=== PATIENT | male | born 1975 | race Caucasian/White ===

== ENCOUNTER → 2020-01-17 | Outpatient (CLI) | payer OTHER | END | disposition home or self-care (01) | LOC: LAB SHORT 10:44 → LAB 10:44 | DX: K51.90 Ulcerative colitis, unspecified, without complications (principal) | CPT/HCPCS: 83993 ==

== ENCOUNTER 2020-02-15 12:39 | Day surgery (SDC) | payer OTHER ==
[~2020-02-15] VITALS: Ht 182.9 cm; Wt 108.7 kg
[2020-02-15] MEDS ORDERED: OMEP20ER (12:56)
[2020-02-15] MEDS ORDERED: RENFLEXIS100 M1 (12:56)
[2020-02-15] MEDS ORDERED: AZAT50 (12:56)
--- NOTE | 2020-02-15 13:24 | NUR ---
02/15/20 1324 Eveline Fuller 2 IV ATTEMPTS FIRST ATTEMPT IN RIGHT WRIST NO FLASHBACK SECOND ATTEMPT IN LEFT HAND NO FLASHBACK THIRD ATTEMPT IN RIGHT HAND NO FLASHBACK FOURTH ATTEMPT IN RIGHT WRIST SUCCESSFUL ATTEMPTS BY RENATOT, DLB, RXS
== END 2020-02-15 14:10 | disposition home or self-care (01) ==
LOC: ORSCSDS 12:39
PROVIDERS: Internal Medicine Gastroenterology
PROC: 0DB58ZX Excision of Esophagus, Via Natural or Artificial Opening Endoscopic, Diagnostic (ICD-10-PCS; principal; 2020-02-15 13:45)
DX: K22.70 Barrett's esophagus without dysplasia (principal); D50.9 Iron deficiency anemia, unspecified; K21.9 Gastro-esophageal reflux disease without esophagitis; G47.33 Obstructive sleep apnea (adult) (pediatric); K44.9 Diaphragmatic hernia without obstruction or gangrene; K31.819 Angiodysplasia of stomach and duodenum without bleeding; Z79.899 Other long term (current) drug therapy
CPT/HCPCS: 88305; J2704; J7120

== ENCOUNTER → 2020-04-11 | Outpatient (CLI) | payer OTHER ==
[~2020-04-11] MED LIST: AZAT50; OMEP20ER; RENFLEXIS100 M1
== END | disposition home or self-care (01) ==
LOC: LAB SHORT 12:13 → PLD 12:13
DX: D22.5 Melanocytic nevi of trunk (principal)
CPT/HCPCS: 88305

== ENCOUNTER → 2020-05-17 | Outpatient (CLI) | payer OTHER | END | disposition home or self-care (01) | LOC: PLD 07:51 → LAB SHORT 07:51 | DX: D48.5 Neoplasm of uncertain behavior of skin (principal) | CPT/HCPCS: 88305 ==

== ENCOUNTER 2020-08-04 10:02 | Day surgery (SDC) | payer OTHER ==
[~2020-08-04] VITALS: Ht 182.9 cm; Wt 248.6 kg
== END 2020-08-04 12:11 | disposition home or self-care (01) ==
LOC: ORSCSDS 10:02
PROVIDERS: Internal Medicine Gastroenterology
PROC: 0DB58ZX Excision of Esophagus, Via Natural or Artificial Opening Endoscopic, Diagnostic (ICD-10-PCS; principal; 2020-08-04 11:30)
DX: K22.70 Barrett's esophagus without dysplasia (principal); K50.90 Crohn's disease, unspecified, without complications; K44.9 Diaphragmatic hernia without obstruction or gangrene; K31.819 Angiodysplasia of stomach and duodenum without bleeding; G47.33 Obstructive sleep apnea (adult) (pediatric); D50.9 Iron deficiency anemia, unspecified; E66.9 Obesity, unspecified; Z68.31 Body mass index [BMI] 31.0-31.9, adult; Z79.899 Other long term (current) drug therapy
CPT/HCPCS: 88305; J2250; J2704; J7120

== ENCOUNTER 2021-03-28 13:47 | Inpatient (IN) | payer OTHER ==
[~2021-03-28] VITALS: Ht 182.9 cm; Wt 111.1 kg
[2021-03-28 15:04] LABS: Alanine Aminotransfer (ALT/SGP 44 U/L (12-78); Albumin, Blood 4.4 g/dL (3.4-5.0); Alk Phos 89 U/L (50-136); Anion Gap 9 mmol/L (6-16); Aspartate Aminotrans (AST/SGOT 33 U/L (12-37); Bilirubin, Total 0.5 mg/dL (0.1-1.0); Blood Urea Nitrogen 12 mg/dL (8-24); Bun/Creatinine Ratio 11.4 (12.0-20.0); CO2, Blood 23 mmol/L (21-32); Calcium, Blood 9.5 mg/dL (8.5-10.1); Chloride, Blood 107 mmol/L (98-108); Creatinine, Blood 1.05 mg/dL (0.60-1.20); Globulin, Blood 4.2 g/dL (2.2-4.0); Glomerular Filtration Rate >60 (60-); Glucose, Blood 120 mg/dL (70-99); Potassium, Blood 4.3 mmol/L (3.5-5.5); Sodium, Blood 139 mmol/L (136-145); Total Protein, Blood 8.6 g/dL (6.4-8.2)
[2021-03-28 15:14] LABS: BASOPHILS ABSOLUTE AUTO 0.04 K/mm3 (0.00-0.23); BASOPHILS PERCENT AUTO 1 % (0-2); EOSINOPHILS ABSOLUTE AUTO 0.11 K/mm3 (0.00-0.68); EOSINOPHILS PERCENT AUTO 1 % (0-6); Hematocrit 44.2 % (37.0-53.0); Hemoglobin 14.1 g/dL (13.5-17.5); IMMATURE GRAN ABSOLUTE AUTO 0.01 K/mm3 (0.00-0.10); IMMATURE GRAN PERCENT AUTO 0 % (0-1); LYMPHOCYTES ABSOLUTE AUTO 1.67 K/mm3 (0.84-5.20); LYMPHOCYTES PERCENT AUTO 21 % (21-46); MONOCYTES ABSOLUTE AUTO 0.72 K/mm3 (0.16-1.47); MONOCYTES PERCENT AUTO 9 % (4-13); Mean Corpuscular HGB 27.5 pg (26.0-34.0); Mean Corpuscular HGB Conc 31.9 g/dL (31.5-36.5); Mean Corpuscular Volume 86 fL (80-100); Mean Platelet Volume 9.5 fL (9.1-12.4); NEUTROPHILS ABSOLUTE AUTO 5.32 K/mm3 (1.96-9.15); NEUTROPHILS PERCENT AUTO 68 % (41-73); Platelet Count 312 K/mm3 (150-400); RDW Coefficient Variation 14.8 % (11.7-14.2); RDW Standard Deviation 47.8 fL (35.1-46.3); Red Blood Cell Count 5.13 M/mm3 (4.30-5.90); White Blood Cell Count 7.87 K/mm3 (4.00-11.30)
[2021-03-28 17:13] LABS: Influenza A, PCR NEGATIVE (NEGATIVE); Influenza B, PCR NEGATIVE (NEGATIVE); Resp Syncytial Virus, PCR NEGATIVE (NEGATIVE); SARS-Cov-2 (COVID-19) PCR, MMC NEGATIVE (NEGATIVE)
--- NOTE | 2021-03-28 18:36 | NUR ---
1715 RECEIVED PT. FROM ER VIA STRETCHER ACCOMPANIED BY COMBAT CONTROL MANAGER, TRANSFERRED TO BED INDEPENDENTLY, AOX4, ORIENTATION TO ROOM DONE, CALL LIGHT WITHIN REACH, BED IN LOW POSITION, EDUCATION GIVEN RE: NPO DIET RELATED TO UPCOMING SURGERY,ADVISED TO CALL FOR ANY NEEDS, PT. VERBALIZED UNDERSTANDING.
--- NOTE | 2021-03-28 19:56 | NUR ---
DR. PHILIP NOTIFIED OF ORAL TEMP 102.1 AND HR TACHY IN 120'S. NEW ORDER FOR TYLENOL. WILL ADMINISTER AND RECHECK. PT A&O X4. DENIES CHILLS/BODYACHES. PAIN TOLERABLE AT THIS TIME.
--- NOTE | 2021-03-28 23:48 | NUR ---
DR. PHILIP GIVEN UPDATE ON PATIENT CONDITION. PT REMAINS FEBRILE AT 102.3, DESPITE ADMINISTRATION OF TYLENOL. TACHY IN LOW 100'S. IVF INFUSING. BLANKETS REMOVED. ALL OTHER VS WNL. WILL GIVEN TORADOL PER ORDERS.
--- NOTE | 2021-03-29 06:04 | NUR ---
SHIFT SUMMARY: PT A&O X4. FEBRILE THIS SHIFT WITH TMXAX 102.3. PT MEDICATED WITH TYLENOL AND TORADOL PER EMAR. MOST RECENT TEMP 98.4. PT ALSO TACHY IN BEGINNING OF SHIFT BUT HAS IMPROVED THROUGHOUT NIGHT. IVF AND IV ABX INFUSING PER EMAR. PT INDEPENDENT IN ROOM. PAIN BEING MANAGED WITH 50MCG OF FENTANYL PER EMAR. PT HAS BEEN NPO SINCE MIDNIGHT FOR OR TODAY.
--- NOTE | 2021-03-29 08:22 | NUR ---
temp rechecked after tylenol and is 103.3. dr zuleta notified
--- NOTE | 2021-03-29 08:51 | NUR ---
TO DAY SURGERY VIA BED
--- NOTE | 2021-03-29 08:58 | NUR ---
INTO SDS ADMISSION STARTED TO UNIT. RATES PAIN AT 4-5 WHEN NOT MOVING
--- NOTE | 2021-03-29 09:45 | NUR ---
03/29/21 0945 Rola Sosa NO PREOP ANTIBIOTICS PATIENT IS ON SCHEDULED ANTIBIOTICS.
--- NOTE | 2021-03-29 12:34 | NUR ---
1100 RETURNED TO ROOM POST OP. PT STOOD TO TRANSFER FROM [facility] TO BED. PT REPORTS PAIN IS MUCH LESS THAN IT WAS PRIOR TO SURGERY AND DENIES NEED FOR PAIN MED AT THIS TIME. ABD INCISIONS X3 WITH GAUZE DRESSINGS. JULITA DRAIN TO LLQ WITH BLOODY DRAINAGE
--- NOTE | 2021-03-29 17:08 | NUR ---
PT REPORTS PAIN IS ADEQUATELY CONTROLLED. CASIMIRO PO WITHOUT NAUSEA. PT AMBULATING IN ROOM AND VOIDING CLEAR YELLOW URINE. INCISIONS DRY AND INTACT. JULITA WITH SANGUINOUS DRAINAGE
[2021-03-30 04:41] LABS: BASOPHILS ABSOLUTE AUTO 0.02 K/mm3 (0.00-0.23); BASOPHILS PERCENT AUTO 0 % (0-2); EOSINOPHILS PERCENT AUTO 0 % (0-6); Hematocrit 34.5 % (37.0-53.0); Hemoglobin 11.5 g/dL (13.5-17.5); IMMATURE GRAN ABSOLUTE AUTO 0.07 K/mm3 (0.00-0.10); IMMATURE GRAN PERCENT AUTO 1 % (0-1); LYMPHOCYTES ABSOLUTE AUTO 0.57 K/mm3 (0.84-5.20); LYMPHOCYTES PERCENT AUTO 4 % (21-46); MONOCYTES ABSOLUTE AUTO 0.72 K/mm3 (0.16-1.47); MONOCYTES PERCENT AUTO 5 % (4-13); Mean Corpuscular HGB 28.5 pg (26.0-34.0); Mean Corpuscular HGB Conc 33.3 g/dL (31.5-36.5); Mean Corpuscular Volume 85 fL (80-100); Mean Platelet Volume 9.5 fL (9.1-12.4); NEUTROPHILS ABSOLUTE AUTO 12.79 K/mm3 (1.96-9.15); NEUTROPHILS PERCENT AUTO 90 % (41-73); Platelet Count 192 K/mm3 (150-400); RDW Coefficient Variation 14.6 % (11.7-14.2); RDW Standard Deviation 45.1 fL (35.1-46.3); Red Blood Cell Count 4.04 M/mm3 (4.30-5.90); White Blood Cell Count 14.17 K/mm3 (4.00-11.30)
--- NOTE | 2021-03-30 07:58 | NUR ---
SHIFT SUMMARY: PT DOING MUCH BETTER THIS SHIFT. POD#1 FOR A LAP APPY. JULITA DRAIN IN PLACE TO LEFT ABD. SCANT AMOUNT OF SS DRG IN BULB. DRAIN NOT NEEDING TO BE EMPTIED THIS SHIFT. LAP SITES C/D/I WITH GAUZE AND TEGADERM. ABD MIDLY DISTENDED. PT REPORTS PASSING A SMALL AMOUNT OF FLATUS. TOLERATING REG DIET. DENIES N/V. IVF AND IV ABX INFUSING PER EMAR. PAIN BEING MANAGED WITH OXY AND TYLENOL.
--- NOTE | 2021-03-30 17:32 | NUR ---
PT REPORTS PAIN IS WELL CONTROLLED WITH PO MEDS. ABD DISTENDED PT PT STATES IS MUCH LESS DISTENDED THAN IT WAS THIS MORNING. PT PASSING FLATUS AND HAD SMALL BM. CASIMIRO REG DIET WITHOUT NAUSEA. AMBULATING INDEPENDENTLY IN HALLWAYS. JULITA DRAIN WITH CLOUDY SEROSANGUINOUS DRAINAGE
--- NOTE | 2021-03-31 07:10 | NUR ---
SHIFT SUMMARY POD2 LAP KINJAL, A/O X4, VSS, TOLERATING PO, PAIN WELL MANAGED, INDEPENDENT IN ROOM, AMBULATES IN THE HALLS, DISTENTION IN ABD IMPROVING, PASSING FLATUS, SMALL BM YESTERDAY PER REPORT. NO ACUTE EVENTS THIS SHIFT. CALL LIGHT IN REACH, REPORT GIVENT TO DAY RN.
[2021-03-31] MEDS ORDERED: Norco 5-325 Ta1 EACH PO (10:21)
[2021-03-31] MEDS ORDERED: AMOCLA875 PO (10:22)
[2021-03-31] MEDS ORDERED: Vancocin HCl125 MG PO (10:22)
[2021-03-31] MEDS ORDERED: VANCOCIN HCL125 MG PO (10:23)
[2021-03-31] MEDS ORDERED: ACET325 PO (10:24)
--- NOTE | 2021-03-31 10:53 | NUR ---
DISCHARGE POD 2 LAP APPY PT TOLERATING PO WELL. DENIES NAUSEA AND REPORTS PAIN IS TOLERABLE. LAP SITES CDI. JULITA DRAIN REMOVED WITH DR. DUMONT THIS AM. PT TOLERATED WELL. PRESCRIPTIONS GIVEN TO PATIENT WHO PLANS TO REGISTERED NURSE CARDIOVASCULAR ICU ON HIS WAY HOME. IV REMOVED THIS AM. INFILTRATED, SWELLING DOWN BY DISCHARGE, NO PAIN OR REDNESS.
== END 2021-03-31 10:48 | disposition home or self-care (01) | DRG 339 ==
LOC: ER 13:47 → SURS 13:48
PROVIDERS: Physician Assistant; Student in an Organized Health Care Education/Training Program; ADMIT Surgery
PROC: 0DTJ4ZZ Resection of Appendix, Percutaneous Endoscopic Approach (ICD-10-PCS; principal; 2021-03-29 08:30)
DX: K35.32 Acute appendicitis with perforation, localized peritonitis, and gangrene, without abscess (principal); K50.90 Crohn's disease, unspecified, without complications; D84.81 Immunodeficiency due to conditions classified elsewhere; K22.70 Barrett's esophagus without dysplasia; G47.33 Obstructive sleep apnea (adult) (pediatric); Z98.890 Other specified postprocedural states; F17.220 Nicotine dependence, chewing tobacco, uncomplicated; Z79.899 Other long term (current) drug therapy
CPT/HCPCS: 0241U; 36415; 74177; 80053; 83690; 85025; 88304; 94760; 96365; 96366; 96375; 96376; 99285-25; A9270; G0378; J0295; J0330; J1100; J1650; J1885; J2270; J2405; J2704; J3010; J7030; J7120; Q9967